=== PATIENT | female | born 1985 | race Caucasian/White ===

== ENCOUNTER → 2019-02-08 | Outpatient (CLI) | payer BC ==
--- NOTE | 2019-02-08 17:04 | Diagnostic Imaging Report ---
PROCEDURE: US Non-ob pelvis comp/trans. TECHNIQUE: Multiple real-time grayscale images were obtained of the pelvis in various projections endovaginally. Transabdominal imaging was also performed. INDICATION: Secondary oligomenorrhea. COMPARISON: None. FINDINGS: Uterus is anteverted and measures 9 cm in length x 4.7 cm in AP dimension x 5.5 cm transversely. No focal myometrial mass-type lesions are seen. Endometrial stripe is within normal limits at 8 mm in thickness. Visualized portions of the cervix show a few small benign-appearing nabothian cysts. No adnexal masses or free fluid are seen. Right ovary measures 2.9 x 3.8 x 3.1 cm. There is a small benign-appearing right ovarian cyst that measures 2.3 x 2.1 x 2.3 cm. Left ovary cannot be adequately visualized. IMPRESSION: 1. Small benign-appearing right ovarian cyst. Otherwise, unremarkable pelvic sonogram. Dictated by: Dictated on workstation # [id number]
== END ==
LOC: RAD 15:27
PROVIDERS: ATTEND Obstetrics & Gynecology
DX: N83.201 Unspecified ovarian cyst, right side (principal); N91.4 Secondary oligomenorrhea
CPT/HCPCS: 76830; 76856

== ENCOUNTER 2019-12-17 05:38 | Outpatient (RCR) | payer BC ==
[~2019-12-17] VITALS: Ht 177 cm; Wt 109.0 kg
[2019-12-17] MEDS ORDERED: LEVO125T PO (13:12)
[2019-12-17] MEDS ORDERED: LORA10TA76 PO (13:12)
== END 2019-12-17 13:15 | disposition home or self-care (01) ==
LOC: PREOP 05:38
PROVIDERS: ATTEND Surgery
DX: Z01.812 Encounter for preprocedural laboratory examination (principal); K62.5 Hemorrhage of anus and rectum; Z20.828 Contact with and (suspected) exposure to other viral communicable diseases
CPT/HCPCS: 87635

== ENCOUNTER 2019-12-20 07:56 | Day surgery (SDC) | payer BC ==
[~2019-12-20] VITALS: Ht 177 cm; Wt 109.0 kg
[~2019-12-20 07:56] MED LIST: LEVO125T PO; LORA10TA76 PO
[2019-12-20] MEDS ORDERED: LACTATED RINGERS 1,000 ML IV STA (08:10)
--- OUTSIDE RECORDS SUMMARY | 2019-12-20 08:12 | XMS REPORT ---
Author Author Yue Zuniga Organization [facility] Address [address] [place] [address] Care Team Providers Care Steward/Stewardess Economy Class Name Role Phone PHIL Zuniga Unavailable PROBLEMS Unknown Problems ALLERGIES No Information ENCOUNTERS Encounter Location Date Diagnosis [address] [id number] Jun, Acute nasopharyngitis J00 and Nasal sinu s congestion R09.81 [place] [id number] [id number] Mar, Encounter for immunization Z23 [place] [id number] [place] [id number] [id number] May, Dysfunction of both eustachian tubes H69 .83 and Upper respiratory tract infection, unspecified type J06.9 [place] [id number] [place] [address] October, [place] [id number] [place] [address] October, IMMUNIZATIONS No Known Immunizations SOCIAL HISTORY Never Assessed REASON FOR VISIT PLAN OF CARE VITAL SIGNS MEDICATIONS No Known Medications RESULTS No Results PROCEDURES Procedure Date Ordered Result Body Site THER/PROPH/DIAG INJ, SC/IM October 12, 2013 INJ METHYLPRDNISOLONE ACTAT 80 MG October 12, 2013 INSTRUCTIONS MEDICATIONS ADMINISTERED No Known Medications MEDICAL (GENERAL) HISTORY Type Description Date Surgical History Gallbladder removed 2015 Surgical History [place] teeth removed 1998
--- OUTSIDE RECORDS SUMMARY | 2019-12-20 08:12 | XMS REPORT | Continuity of Care Document ---
Author Organization Unknown Address Unknown Phone Unavailable Allergies Active Description Code Type Severity Reaction Onset Reported/Identified Relationship to Patient Clinical Status Yes Cefaclor Cefaclor Drug Allergy Unknown HIVES 05/08/2014 Yes cefuroxime cefuroxime Drug Allerg y Unknown HIVES 05/08/2014 Yes Sulfa (Sulfonamide Antibiotics) Sulfa (Sulfonamide Antibiotics) Drug Allergy Unknown HIVES 05/08/2014 Yes cefaclor [id number] Drug Allergy Mild RASH 12/17/2019 Yes cefuroxime [id number] Drug Allerg y Mild RASH 12/17/2019 Yes Penicillins [id number] Drug Aller gy Mild RASH 12/17/2019 Yes Sulfa (Sulfonamide Antibiotics) [id number] Drug Allergy Mild RASH 0 Medications There is no data. Problems Date Dx Coded Attending Type Code Diagnosis Diagnosed By 05/12/1314 ASUNCION SERRANO DO Ot K62. 5 HEMORRHAGE OF ANUS AND RECTUM 05/12/1314 ASUNCION SERRANO DO Ot Z01.812 ENCOUNTER FOR PREPROCEDURAL LABORATORY E 05/12/1314 ASUNCION SERRANO DO Ot Z20.828 CONTACT W AND EXPOSURE TO OTH VIRAL COMM 10/12/2013 PHIL RIVAS APRN 692.9 DERMATITIS CONTACT UNSPECIFIED 10/12/2013 PHIL RIVAS APRN 698.9 PRURITUS NOS 02/13/2019 ANGUS MARTINEZ DO Ot N83.201 UNSPECIFIED OVARIAN CYST, RIGHT SIDE 02/13/2019 ANGUS MARTINEZ DO Ot N91.4 SECONDARY OLIGOMENORRHEA 10/16/2019 W N92.6 Irre gular periods/menstrual cycles Polly Medina 10/16/2019 W R03.0 Elev ated blood pressure reading Polly Medina 10/16/2019 W R35.0 Urin silva frequency Polly Medina 10/16/2019 W N92.6 Irre gular periods/menstrual cycles Polly Medina 10/16/2019 W R03.0 Elev ated blood pressure reading Polly Medina 10/16/2019 W R35.0 Urin silva frequency Polly Medina 10/20/2019 W N92.6 Irre gular periods/menstrual cycles Polly Medina 10/20/2019 W R03.0 Elev ated blood pressure reading Polly Medina 10/20/2019 W R35.0 Urin silva frequency Polly Medina 10/30/2019 W R03.0 Elev ated blood pressure reading Polly Medina 11/06/2019 W R03.0 Elev ated blood pressure reading Polly Medina Procedures Code Description [place] [address] THER APUTIC INJ SQ/IM 10/12/2013 J1040 DEPO MEDROL 80 MG INJ 10/12/2013 Results Test Result Range URINALYSIS, ROUTINE - 05/08/14 13:20 UA LEUKOCYTE ESTERASE DIPSTICK TRACE NEGATIVE UA NITRITE DIPSTICK NEGATIVE NEGATIVE UA PROTEIN DIPSTICK NEGATIVE NEGATIVE UA GLUCOSE DIPSTICK NEGATIVE NEGATIVE UA KETONE DIPSTICK NEGATIVE NEGATIVE UA UROBILINOGEN DIPSTICK NORMAL TAN L UA BILIRUBIN DIPSTICK NEGATIVE NEGATIVE UA BLOOD DIPSTICK NEGATIVE NEGATIVE UA SPECIFIC GRAVITY 1.005 1.015-1.02 5 UR PH 7.0 5.0-7.0 UA MICROSCOPIC - 05/08/14 13:20 UA BACTERIA 1+ NEGATIVE UA EPITHELIAL CELLS 1+ epi/hpf 0 - 1+ UA RBC 0 rbc/hpf 0 - 3 UA VOLUME FOR EXAM 12.0 mL (12mL STD) UA WBC 0-1 wbc/hpf 0 - 5 Coronavirus SARS-CoV-2 SO 2018 0 07:50 Coronavirus Ab [Units/volume] in Serum Negative Negative Encounters ACCT No. Visit Date/Time Discharge Status Pt. Type Provider Facility Loc./Unit Complaint [id number] 10/12/2013 13:30:00 10/12/2013 23:59: 59 CLS Outpatient PHIL RIVAS APRN [id number] 09/08/2018 00:00:10 09/08/2018 23:59:5 9 CLS Outpatient [id number] 07/12/2019 13:00:00 07/12/2019 23:59:5 9 CLS Outpatient MARLY DANIE [facility]O [facility] [id number] 05/08/2014 12:21:00 014 14:05:00 DIS Emergency Barbara CONRAD, [facility] W.EDW [id number] 12/17/2019 05:38:00 020 13:15:00 DIS Outpatient ASUNCION SERRANO DO [facility] PREOP COLONOSCOPY [id number] 02/08/2019 15:27:00 019 23:59:59 CLS Outpatient ANGUS MARTINEZ DO [facility] RAD SECONDARY OLIGOMENORRH EA [id number] 12/20/2019 09:00:00 P EN Preadmit ASUNCION SERRANO DO [facility] ENDO BLOOD PER RECTUM
--- OUTSIDE RECORDS SUMMARY | 2019-12-20 08:12 | XMS REPORT | CCD ---
Author Author Yue Medina Organization Sharon Pastor MD, [facility] Address [address] [place] [address] Phone Care Team Providers Care Associate Director Data & Analytics Name Role Phone PP Unavailable CCM Unavailable Summary Purpose Interface Exchange Insurance Providers Payer name Policy type / Coverage type Covered democrat ID Effective Begin Date Effective End Date Blue Cross Blue Shield 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/14/[address]: 236917995 Never smoker 09/14/[address]: 755545304 Never drinks alcohol 09/14/2018 Allergies, Adverse Reactions, Alerts Substance Reaction Codes Entered Date Inactivated Date Status * OTHER REACTION - S EE ANSWER BOX Ceclor; Ceftin- hives, rash Unknown 09/14/2018 No Inactive Date Active CEPHALOSPORINS hives Unknown 09/15/2018 No In active Date Active Penicillin rash, hives Unknown 09/14/2018 No Inactive Date Active SULFA(SULFONAMIDE AN TIBIOTICS) rash, hives, Unknown No Inactive Date Active Past Medical History Illness Codes Condition Status Onset Date Resolved Date Hypothryroidism Unknown Active 09/14/2018 Unknow n Female infertility a ssociated with anovulation ICD-9: 628.0 ICD-10: N97.0 Active 09/14/2018 Unknown Hypothyroidism, unsp ecified ICD-9: 244.9 ICD-10: E03.9 Active 09/14/2018 Unknown Mixed irritable danna l syndrome ICD-9: 564.1 ICD-10: K58.2 Active 09/14/2018 Unknown Problems Condition Codes Effectiv e Dates Condition Status Hypothryroidism Unknown 09/14/2018 Active Female infertility a ssociated with anovulation ICD-9: 628.0 ICD-10: N97.0 09/14/2018 Active Hypothyroidism, unsp ecified ICD-9: 244.9 ICD-10: E03.9 09/14/2018 Active Mixed irritable danna l syndrome ICD-9: 564.1 ICD-10: K58.2 09/14/2018 Active Medications Medication Codes Instruc tions Start Date Stop Date Sta tus Fill Instructions levothyroxine 150 mc g tablet RxNorm: 210976 1 Tablet(s) PO daily X2 DAYS No Start Date Active levothyroxine 100 mc g tablet RxNorm: 114283 1 Tablet(s) PO daily X5 DAYS No Start Date Active Medication Administered No Medication Administered data Immunizations Vaccine Codes Date Status Influenza CVX: 141 04/13 completed Tetanus, Diptheria, Pertussis CVX: 113 12/12/2007 completed Tetanus/Diptheria CVX: 113 12/12/2007 completed Assessments Condition Codes Effectiv e Dates Hypothyroidism, unspecified ICD-10: E03.9 ICD-9: 244.9 09/14/2018 Mixed irritable bowel syndrome ICD-1 0: K58.2 ICD-9: 564.1 09/14/2018 Female infertility associated with anovulation ICD-10: N97.0 ICD-9: 628.0 09/14/2018 Reason For Visit Reason For Visit Effective Dates Notes hypothyroid 09/14/2018 Results No Results data Review of Systems System Result Effective Dates Constitutional No recent illness 09/14/2018 Constitutional No anorexia 09/14/2018 Constitutional No night sweats 09/14/2018 Constitutional No chills 09/14/2018 Constitutional No fatigue 09/14/2018 Constitutional No diaphoresis 09/14/2018 Constitutional No fever 09/14/2018 Constitutional No malaise 09/14/2018 Constitutional No insomnia 09/14/2018 Constitutional No weight loss 09/14/2018 Constitutional No weight gain 09/14/2018 Eyes No eye erythema 09/2018 Eyes No eye discharge Ears/Nose/Throat/Neck No dizziness 09/14/2018 Ears/Nose/Throat/Neck headache 09/14/2018 Cardiovascular No chest pain/pressure 09/14/2018 Cardiovascular No dyspnea 09/14/2018 Cardiovascular No edema 09/14/2018 Respiratory No cough 09/2018 Respiratory No productive sputum 09/14/2018 Gastrointestinal abdominal pain 09/14/2018 Gastrointestinal constipation 09/14/2018 Gastrointestinal diarrhea 09/14/2018 Genitourinary/Nephrology No dysuria 09/14/2018 Genitourinary/Nephrology menstrual i rregularity 09/14/2018 Musculoskeletal No joint complaint 09/14/2018 Dermatologic No rash 09/2018 Neurologic No alteration of consciousness 09/14/2018 Psychiatric No anxiety 0 09/14/2018 Psychiatric No depression 09/14/2018 Endocrine dry or coarse skin 09/14/2018 Endocrine hair loss 09/2018 Endocrine No polyuria Endocrine No polydipsia 09/14/2018 Hematologic/Lymphatic No abnormal bl eeding and bruising 09/14/2018 Hematologic/Lymphatic No abnormal ec chymoses 09/14/2018 Allergy/Immunology No food allergy 09/14/2018 Physical Exam Exam Name System Name It em Name Status Result Effective Dates Notes Full Exam - General 1994 Constitutional general appearance Overall: well developed 09/14/2018 None Full Exam - General 1994 Constitutional general appearance Overall: in no acute distress 09/14/2018 None Full Exam - General 1994 Constitutional general appearance Overall: well nourished 09/14/2018 None Full Exam - General 1994 Psychiatric orientation/consciousness Overall: oriented to person, place and time 09/14/2018 None Full Exam - General 1994 Neurologic cranial nerves Overall: crainial nerves 2 - 12 grossly intact 09/14/2018 None Full Exam - General 1994 Integument inspection of skin Overall: few scattered moles, no gross abnormalities 09/14/2018 None Full Exam - General 1994 Musculoskeletal gait and station Overall: normal gait 09/14/2018 None Full Exam - General 1994 Musculoskeletal gait and station Overall: normal station 09/14/2018 None Full Exam - General 1994 Abdomen abdominal exam Overall: no tenderness 09/14/2018 None Full Exam - General 1994 Abdomen abdominal exam Overall: normal bowel sounds 09/14/2018 None Full Exam - General 1994 Cardiovascular auscultation of heart Overall: regular rate 09/14/2018 None Full Exam - General 1994 Cardiovascular auscultation of heart Overall: normal heart sounds 09/14/2018 None Full Exam - General 1994 Cardiovascular auscultation of heart Overall: no murmurs 09/14/2018 None Full Exam - General 1994 Respiratory auscultation Overall: breath sounds clear bilaterally 09/14/2018 None Full Exam - General 1994 Respiratory respiratory effort/rhythm Overall: no retractions 09/14/2018 None Full Exam - General 1994 Respiratory respiratory effort/rhythm Overall: normal rate 09/14/2018 None Full Exam - General 1994 Ears/Nose/Throat otoscopic exam Overall: external auditory canals clear 09/14/2018 None Full Exam - General 1994 Ears/Nose/Throat otoscopic exam Overall: tympanic membranes clear 09/14/2018 None Full Exam - General 1994 Ears/Nose/Throat oral cavity/pharynx/larynx Overall: oral mucosa clear 09/14/2018 None Full Exam - General 1994 Eyes conjunctiva/eyelids Overall: conjunctiva clear 09/14/2018 None Full Exam - General 1994 Eyes pupils and irises Overall: pupils equal, round, reactive to light and accomodation 09/14/2018 None Procedures No Procedures data Vital Signs Date Vital 09/14/2018 Blood Pressure 1: 138/80 Code: 8480-6 BMI: 35.6 Code: 26181-0 Heart Rate 1: 94 bpm Height: 5'10" SpO2: 98% Weight: 248 lbs Functional Status No Functional Status data History of Present Illness Symptom Name Status Resu lt Effective Date Notes Quality intermittent 09/14/2018 None Quality cramping 09/14/2018 None Triggers no known asso ciated factors 09/14/2018 None Exacerbating Factors e ating 09/14/2018 None Pertinent Findings blo ating 09/14/2018 None Onset and Resolution D enies ongoing 09/14/2018 None Alleviating Factors me dication 09/14/2018 None Location in the [facility] area 09/14/2018 None Onset and Resolution o ngoing 09/14/2018 None Severity mild with sub clinical signs 09/14/2018 None Frequency of Episodes unchanged 09/14/2018 None Triggers no known asso ciated factors 09/14/2018 None Advance Directives No Advance Directive data Encounters Encounter Performer Loca tion Codes Date OFFICE VISIT, NEW - LEVEL 3 Diagnosis: Hypothyroidism, unspecified[ICD10: E03.9] Diagnosis: Female infertility associated with anovulation[ICD10: N97.0] Diagnosis: Mixed irritable bowel syndrome[ICD10: K58.2] Polly Pastor MD, [facility] CPT-4: 02991 09/14/2018 Plan of Care Planned Activity Notes C odes Status Date Visit Plan: Hypothyroidism - pt wit h chronic hypothyroidism, continue with current medication, will monitor pt to signs or symptoms of lack of adequate supplementation. Pt is to continue with current dose of medication unless directed otherwise. Check labs at regular intervals q 3 months or q 6 months based on previous levels of control. Infertility -patient seeing fertility specialist in -discussed with patient -recommend she try the letrozole IBS-monitor diet 09/14/2018 Appointment: Polly Medina WPtel: [address] [place], [place] [phone] New Patient 09/14/2018 Patient Education: Patient Medication Summary Completed 09/14/2018 Instructions Comment . Hypothyroidism - p t with chronic hypothyroidism, continue with current medication, will monitor pt to signs or symptoms of lack of adequate supplementation. Pt is to continue with current dose of medication unless directed otherwise. Check labs at regular intervals q 3 months or q 6 months based on previous levels of control. Infertility -patient seeing fertility specialist in -discussed with patient - recommend she try the letrozole IBS-monitor diet
--- OUTSIDE RECORDS SUMMARY | 2019-12-20 08:12 | XMS REPORT | CCD ---
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 Never smoker 09/14/[address]: 234291187 Never drinks alcohol 09/14/2018 Allergies, Adverse Reactions, Alerts Substance Reaction Codes Entered Date Inactivated Date Status * OTHER REACTION - S EE ANSWER BOX Ceclor; Ceftin- hives, rash Unknown 09/14/2018 No Inactive Date Active Penicillin rash, hives Unknown 09/14/2018 [...] Instructions levothyroxine 150 mc g tablet RxNorm: 462103 1 Tablet(s) PO daily X2 DAYS No Start Date Active levothyroxine 100 mc g tablet RxNorm: 856691 1 Tablet(s) PO daily X5 DAYS No [...] 1: 138/80 Code: 8480-6 BMI: 35.6 Code: 03708-1 Heart Rate 1: 94 bpm Height: 5'10" [...] me dication 09/14/2018 None Location in the [facility] area 09/14/2018 None Onset and Resolution o [...] irritable bowel syndrome[ICD10: K58.2] [facility] CPT-4: 01553 09/14/2018 Plan of Care Planned Activity Notes [...] she try the letrozole IBS-monitor diet 09/14/2018 Patient Education: Patient Medication Summary Completed [...]
--- OUTSIDE RECORDS SUMMARY | 2019-12-20 08:12 | XMS REPORT ---
Author Author Yue RIVAS [facility] Address [address] [place] [address] Care Team Providers Care Standards Analyst Name Role Phone GINETTESIDDHARTHA PHIL Unavailable PROBLEMS Type Condition ICD9-CM Code LKM21-GC Code Onset Dates Condition S tatus SNOMED Code Problem Contact dermatitis and other eczema, due to unspecified ca use 692.9 Active 92258705 Problem Unspecified pruritic disorder 698.9 Active 130752921 ALLERGIES Substance Reaction Event Type Date Status Penicillin V Potassium rash Drug Allergy May, Activ e Ceftin rash Drug Allergy May, Active Bactrim rash Drug Allergy May, Active ENCOUNTERS Encounter Location Date Diagnosis [facility] [address] [facility] [id number] [place] [id number] May, Dysfunction of both eustachi an tubes H69.83 and Upper respiratory tract infection, unspecified type J06.9 [facility] [address] [facility] [id number] [address] [place] [phone] October, [facility] [address] [facility] [id number] [address] [place] [phone] October, IMMUNIZATIONS Vaccine Route Administration Date Status DEPO MEDROL 80 MG/ML IM Intramuscular May 17, 2017 Administer ed SOCIAL HISTORY Never Assessed REASON FOR VISIT congestion-TGuymonMA PLAN OF CARE Activity Details Follow Up prn Reason: VITAL SIGNS Height 70 in 2017-05-17 Weight 243.6 lbs 2017-05-17 Temperature 99.9 degrees Fahrenheit 2017-05-17 Heart Rate 123 bpm 2017-05-17 Respiratory Rate 18 2017-05-17 BMI 34.95 kg/m2 2017-05-17 Blood pressure systolic 138 mmHg 2017-05-17 Blood pressure diastolic 84 mmHg 2017-05-17 MEDICATIONS Medication Instructions Dosage Frequency Start Date End Date Duration S tatus Zithromax Z-Joreg 250 MG Orally Once a day 2 tablets on the first day, then 1 tablet daily for 4 days 24h May, May, 5 day(s) Acti ve Levothyroxine Sodium Act luh RESULTS No Results PROCEDURES Procedure Date Ordered Result Body Site DEPO MEDROL 80 MG/ML May 17, 2017 THER/PROPH/DIAG INJ, SC/IM May 17, 2017 INSTRUCTIONS MEDICATIONS ADMINISTERED No Known Medications MEDICAL (GENERAL) HISTORY Type Description Date Surgical History Gallbladder removed 2015 Surgical History [place] teeth removed 1998
[2019-12-20] MEDS ORDERED: LACTATED RINGERS 1,000 ML IV ONE (08:14)
[2019-12-20 08:55] VITALS: BP 137/96
[2019-12-20] MEDS ORDERED: PROPOFOL INJECTION 50 ML IV ONE ×2 (09:32→09:59)
[2019-12-20] MEDS ORDERED: MIDAZOLAM 2 MG/2 ML (VERSED) VIAL ONE (09:32)
--- NOTE | 2019-12-20 09:35 | Progress Note-Pre Operative ---
Pre-Operative Progress Note H&P Reviewed The H&P was reviewed, patient examined and no changes noted. Date Seen by Provider: Dec 20, 2019 Time Seen by Provider: 09:35 Date H&P Reviewed: Dec 20, 2019 Time H&P Reviewed: 09:35 Pre-Operative Diagnosis: blood per rectum ASUNCION SERRANO DO Dec 20, 2019 09:35
--- NOTE | 2019-12-20 10:19 | Progress Note-Post Operative ---
Post-Operative Progess Note Surgeon (s)/Materials Supervisor (s) Surgeon ASUNCION SERRANO DO Materials Supervisor: na Pre-Operative Diagnosis blood per rectum Post-Operative Diagnosis normal colon Procedure & Operative Findings Date of Procedure 12/20/19 Procedure Performed/Findings colonoscopy Anesthesia Type per wood flour miller Estimated Blood Loss Estimated blood loss (mL): none Specimens/Packing Specimens Removed na ASUNCION SERRANO DO Dec 20, 2019 10:19
--- NOTE | 2019-12-20 10:20 | Discharge Inst-Simple/Standard ---
Discharge Inst-Standard Patient Instructions/Follow Up Plan of Care/Instructions/FU: 2 weeks Summer Activity as Tolerated: Yes Discharge Diet: Regular Diet (high fiber) ASUNCION SERRANO DO Dec 20, 2019 10:19
--- NOTE | 2019-12-20 10:21 | Anesthesia-General Post-Op ---
MAC Patient Condition Mental Status/LOC: Same as Preop Cardiovascular: Satisfactory Nausea/Vomiting: Absent Respiratory: Satisfactory Pain: Controlled Complications: Absent Post Op Complications Complications None Follow Up Care/Instructions Patient Instructions None needed. Anesthesiology Discharge Order Discharge Order Patient is doing well, no complaints, stable vital signs, no apparent adverse anesthesia problems. No complications reported per nursing. DRAGAN JOHNSON CRNA Dec 20, 2019 10:21
[2019-12-20 10:25] VITALS: BP 120/73
[2019-12-20 10:50] VITALS: BP 121/80
[2019-12-20 11:05] VITALS: BP 121/80
--- NOTE | 2019-12-20 13:43 | OPERATIVE REPORT ---
DATE OF SERVICE: 12/20/2019 PREOPERATIVE DIAGNOSIS: Blood per rectum. POSTOPERATIVE DIAGNOSIS: Normal colon. PROCEDURE: Colonoscopy. SURGEON: Asuncion Wheeler DO ANESTHESIA: Per TAP GRINDER. ESTIMATED BLOOD LOSS: None. COMPLICATIONS: None. INDICATIONS: The patient is a 34-year-old female with blood per rectum. She understands risks and benefits of procedure and wished to proceed with procedure. Consent was signed in the chart. DESCRIPTION OF PROCEDURE: The patient was taken to the endoscopy suite, placed in left lateral recumbent position. Timeout was performed. Digital rectal exam was performed. A posterior anal skin tag with previous fissure was present has healed. No active bleeding. No palpable polyps, masses or ulcerations. Scope was inserted in the rectum and advanced all the way to cecum with minimal difficulty. Prep was adequate. The terminal ileum was intubated, had normal appearance. Scope was withdrawn back into the cecum, which had no polyps, masses or ulcerations. Scope was then slowly retracted back. There were no polyps, or ulcerations within the remainder of the ascending, transverse, descending and sigmoid colon. Once in the rectum, scope was attempted to be retroflexed, but narrow, so multiple insertions and retractions were made noting no other pathology. Scope was then slowly retracted back until completely removed. The patient tolerated procedure well without any complications. She was taken to recovery room in stable condition. RECOMMENDATIONS: The patient likely bleeding source was only fissure that has healed. The patient will follow up in 2 weeks to reexamine. If the patient has any issues with bleeding, would repeat endoscopy at that time. Job ID: [id number] DocumentID: [id number] Dictated Date: 12/20/2019 11:40:43 [facility] Date: 12/20/2019 13:42:47 Dictated By: ASUNCION WHEELER DO
== END 2019-12-20 11:05 | disposition home or self-care (01) ==
LOC: ENDO 07:56
PROVIDERS: ATTEND Surgery
DX: K62.5 Hemorrhage of anus and rectum (principal); K60.0 Acute anal fissure; K64.4 Residual hemorrhoidal skin tags; R19.4 Change in bowel habit; E03.9 Hypothyroidism, unspecified; G43.909 Migraine, unspecified, not intractable, without status migrainosus; F41.9 Anxiety disorder, unspecified; E66.9 Obesity, unspecified; Z68.34 Body mass index [BMI] 34.0-34.9, adult; Z79.899 Other long term (current) drug therapy; Z88.0 Allergy status to penicillin; Z88.2 Allergy status to sulfonamides; Z88.1 Allergy status to other antibiotic agents; Z90.49 Acquired absence of other specified parts of digestive tract; Z83.3 Family history of diabetes mellitus; Z82.49 Family history of ischemic heart disease and other diseases of the circulatory system; Z82.62 Family history of osteoporosis

== ENCOUNTER → 2020-05-22 | Outpatient (CLI) | payer BC ==
[2020-05-22 13:39] LABS: BASOPHILS % (AUTO) 0 % (0-10); EOSINOPHILS # (AUTO) 0.1 10^3/uL (0.0-0.3); EOSINOPHILS % (AUTO) 1 % (0-10); HEMATOCRIT 40 % (35-52); HEMOGLOBIN 12.9 g/dL (11.5-16.0); LYMPHOCYTES # (AUTO) 1.9 10^3/uL (1.0-4.0); LYMPHOCYTES % (AUTO) 18 % (12-44); MEAN CORPUSCULAR HEMOGLOBIN 28 pg (25-34); MEAN CORPUSCULAR HGB CONC 33 g/dL (32-36); MEAN CORPUSCULAR VOLUME 86 fL (80-99); MEAN PLATELET VOLUME 8.9 fL (9.0-12.2); MONOCYTES # (AUTO) 0.4 10^3/uL (0.0-1.0); MONOCYTES % (AUTO) 4 % (0-12); NEUTROPHILS # (AUTO) 7.9 10^3/uL (1.8-7.8); NEUTROPHILS % (AUTO) 76 % (42-75); PLATELET COUNT 281 10^3/uL (130-400); WHITE BLOOD COUNT 10.5 10^3/uL (4.3-11.0)
[2020-05-22 13:47] LABS: ALBUMIN 4.4 GM/DL (3.2-4.5); CHLORIDE 105 MMOL/L (98-107); POTASSIUM 3.7 MMOL/L (3.6-5.0); SODIUM 139 MMOL/L (135-145)
[2020-05-22 13:48] LABS: CALCIUM 9.1 MG/DL (8.5-10.1)
[2020-05-22 13:50] LABS: GLUCOSE 93 MG/DL (70-105); TOTAL PROTEIN 7.6 GM/DL (6.4-8.2)
[2020-05-22 13:51] LABS: BILIRUBIN,TOTAL 0.4 MG/DL (0.1-1.0); CARBON DIOXIDE 24 MMOL/L (21-32)
[2020-05-22 13:53] LABS: ALKALINE PHOSPHATASE 78 U/L (40-136); CREATININE SERUM 0.71 MG/DL (0.60-1.30); GFR ESTIMATED > 60
[2020-05-22 13:54] LABS: BUN/CREATININE RATIO 10
[2020-05-22 13:56] LABS: ALANINE AMINOTRANSFERASE 20 U/L (0-55)
[2020-05-22 14:20] LABS: FREE T4 (FREE THYROXINE) 1.15 NG/DL (0.70-1.48)
--- NOTE | 2020-05-22 14:23 | Diagnostic Imaging Report ---
PROCEDURE: US right lower extremity venous. TECHNIQUE: Multiple real-time grayscale images were obtained over the right lower extremity in various projections. Additional spectral analysis and color Doppler duplex images were also obtained. INDICATION: Right leg edema. There is no evidence of right lower extremity DVT. Right lower extremity deep venous system shows normal compressibility with normal response to augmentation and Valsalva. No fluid collection is seen. There are prominent lymph nodes in the right groin. A right groin lymph node measures 2.8 x 1.0 cm. IMPRESSION: 1. No evidence of right lower extremity DVT. 2. Prominent right groin lymph nodes. Dictated by: Dictated on workstation # [id number]
== END ==
LOC: RAD 13:04
PROVIDERS: ATTEND Nurse Practitioner Family
DX: R22.41 Localized swelling, mass and lump, right lower limb (principal); N91.2 Amenorrhea, unspecified; I10 Essential (primary) hypertension; R00.0 Tachycardia, unspecified
CPT/HCPCS: 36415; 80053; 84439; 84443; 84702; 85025; 85379

== ENCOUNTER → 2021-01-29 | Outpatient (CLI) | payer BC ==
[~2021-01-29] VITALS: Ht 177.8 cm; Wt 106.7 kg
[~2021-01-29] MED LIST changes: +ACETAMINOPHEN 500 MG TAB (TYLENOL) PO PRN; +CASIRIVIMAB/IMDEVIMAB 1,200 MG in NS (IVPB) 250 ML IV ONE; +EPINEPHrine INJECTION 1 MG/ML AMP IM PRN; +ONDANSETRON 4 MG/2 ML (SDV) Z0FRAN IV PRN; +diphenhydrAMINE 50 MG/ML INJ (BENADRYL) IV PRN
[2021-01-29 09:08] VITALS: BP 140/91
[2021-01-29 10:18] VITALS: BP 120/82
== END ==
LOC: INFUSION 09:10
PROVIDERS: ATTEND Nurse Practitioner Family
DX: Z23 Encounter for immunization (principal); U07.1 COVID-19

== ENCOUNTER → 2021-06-11 | Outpatient (CLI) | payer BC ==
[~2021-06-11] MED LIST changes: -ACETAMINOPHEN 500 MG TAB (TYLENOL) PO PRN; -CASIRIVIMAB/IMDEVIMAB 1,200 MG in NS (IVPB) 250 ML IV ONE; -EPINEPHrine INJECTION 1 MG/ML AMP IM PRN; -ONDANSETRON 4 MG/2 ML (SDV) Z0FRAN IV PRN; -diphenhydrAMINE 50 MG/ML INJ (BENADRYL) IV PRN
--- NOTE | 2021-06-11 15:15 | Diagnostic Imaging Report ---
PROCEDURE: Pelvic complete, transabdominal and transvaginal sonogram. Limited pelvic doppler. TECHNIQUE: Multiple real-time grayscale images were obtained of the pelvis in various projections transabdominally and transvaginally. Limited pelvic duplex images were obtained. HISTORY: ADNEXAL TENDERNESS COMPARISON: 02/08/2019 FINDINGS: Uterus: The uterus is anteverted and and measures 8.9 x 4.9 x 5.5 cm. The myometrium is homogeneous without fibroids. Nabothian cysts are present. Endometrium: The endometrium is normal in thickness and measures 0.6 cm. There is no fluid within the endometrial cavity. Adnexa: The left ovary is nonvisualized. The right ovary is normal in appearance with follicles measuring up to 1.6 cm. The right ovary measures 3.9 x 1.8 x 2.3 cm. Duplex images reveal normal vascular flow to the right ovary. Other: There is no free fluid within the pelvis. IMPRESSION: 1. Unremarkable pelvic ultrasound. 2. Nonvisualized left ovary. Dictated by: Dictated on workstation # [id number]
== END ==
LOC: RAD 14:00
PROVIDERS: ATTEND Obstetrics & Gynecology
DX: R10.2 Pelvic and perineal pain (principal)
CPT/HCPCS: 76830; 76856

== ENCOUNTER 2022-11-09 08:12 | Outpatient (CLI) | payer BC | END 2022-11-09 08:30 | LOC: SLEEP 08:12 | PROVIDERS: ATTEND Nurse Practitioner Family | DX: G47.10 Hypersomnia, unspecified (principal); I10 Essential (primary) hypertension | CPT/HCPCS: G0399 ==